=== PATIENT | female | born 1985 | race African-American/Black ===

== ENCOUNTER 2022-10-08 18:03 | Emergency (ER) | payer OTHER ==
[~2022-10-08] VITALS: Ht 152.4 cm; Wt 113.0 kg
[2022-10-08 23:19] LABS: CHLORIDE 107 mEq/L (98-107)
[2022-10-08] MEDS ORDERED: KETOROLAC 30MG/ML VIAL IV ONE (23:30)
[2022-10-08 23:59] LABS: BASOPHILS % 0.5 % (0.0-2.0); EOSINOPHILS % 2.3 % (0.0-5.0); HEMATOCRIT. 34.4 % (36.0-48.0); HEMOGLOBIN. 11.3 g/dL (12.0-16.0); MEAN CORPUSCULAR HEMOGLOBIN 27.1 pg (28.0-32.0); MEAN CORPUSCULAR VOLUME 82.4 fL (81.0-99.0); MEAN PLATELET VOLUME 7.3 fl (7.4-10.4); MONOCYTES % 7.4 % (2.0-8.0); NEUTROPHILS % 59.8 % (40.0-76.0); PLATELET 317 x1000/uL (130-400); RED BLOOD CELL COUNT 4.17 mill/uL (4.2-5.4); RED CELL DISTRIBUTION WIDTH 13.8 % (11.6-14.6)
[2022-10-09 01:00] VITALS: BP 123/44
== END 2022-10-09 01:00 | disposition home or self-care (01) ==
LOC: ER 18:34
DX: R07.89 Other chest pain (principal); I10 Essential (primary) hypertension
CPT/HCPCS: 36415; 71045; 80053; 81025; 83880; 84484; 85025; 85379; 93005; 99285; Z7610; J1885